=== PATIENT | male | born 1980 | race Caucasian/White ===

== ENCOUNTER 2022-02-19 13:01 | Outpatient (CLI) | payer OTHER, SELFPAY ==
--- NOTE | 2022-02-19 13:16 | XR_ITS ---
WS: [id number] EXAMINATION: XR lumbar spine 2-3V* [id number] L-SPINE : 3 views REASON FOR EXAM: LUMBAR DISC DZ/ARTHRITIS COMPARISON: None available. ORDER DATE: 02/19/2022 1:34 PM FINDINGS: The lumbar vertebral bodies and the disc spaces are normal in width. In the lumbar vertebra, there i s no evidence of compression deformities or spondylolisthesis. XR/XR lumbar spine 2-3V* [id number] IMPRESSION: UNREMARKABLE LUMBAR SPINE STUDY
--- NOTE | 2022-02-19 13:16 | USCV_ITS ---
Den Li Age: 41 Gender: M : 1980 Exam Date: 02/19/2022 13:33 Ordering Phys: Edgardo Garvin Technologist: Exam Location: [facility] [place] Indication: abnormal ekg BP: 119 / 70 HR: 79 Rhythm: Sinus Technical Quality: Suboptimal MEASUREMENTS (Male / Female) Normal Values 2D ECHO LV Diastolic Diameter PLAX 4.3 cm 4.2 - 5.9 / 3.9 - 5.3 cm LV Systolic Diameter PLAX 2.9 cm IVS Diastolic Thickness 1.3 cm 0.6 - 1.0 / 0.6 - 0.9 cm IVS Systolic Thickness 1.3 cm LVPW Diastolic Thickness 1.4 cm 0.6 - 1.0 / 0.6 - 0.9 cm LVPW Systolic Thickness 0.0 cm LVOT Diameter 2.0 cm LV Ejection Fraction 2D Teich 61.0 % LV Ejection Fraction MOD 2C 55.5 % LV Ejection Fraction 2C AL 56.1 % LA Diameter 3.4 cm Aorta at Sinotubular Diameter 3.1 cm M-MODE Aortic Annulus Diameter 4.0 cm LA Ao Ratio MM 0.9 MV E Point Septal Separation 0.9 cm DOPPLER AV Peak Velocity 106.0 cm/s LVOT Peak Velocity 111.0 cm/s AV Area Cont Eq vti 3.6 cm squared AV Area Cont Eq pk 3.3 cm squared MV Area PHT 5.0 cm squared Mitral E to A Ratio 1.0 MV E' Velocity 41.0 cm/s Mitral E to MV E' Ratio 4.4 Mitral E to LV E' Lateral Ratio 4.1 Mitral E to LV E' Septal Ratio 4.7 TR Peak Velocity 148.0 cm/s TR Peak Gradient 8.8 mmHg TV Peak E Velocity 87.0 cm/s Right Atrial Pressure 3.0 mmHg Pulmonary Artery Systolic Pressu 11.8 mmHg RV Acceleration Time 0.2 s FINDINGS Left Ventricle Normal left ventricular size, systolic function and wall thickness, with no regional wall motion abnormalities. Normal left ventricular wall thickness. Normal diastolic filling pattern. Right Ventricle The right ventricle is normal in size and function. Normal right ventricular systolic pressure. Right Atrium The right atrium is normal in size. Left Atrium The left atrium is normal in size. Mitral Valve Structurally normal mitral valve without significant stenosis or prolapse. There is no mitral regurgitation. Aortic Valve Structurally normal aortic valve without significant sclerosis or stenosis. There is no aortic regurgitation. Tricuspid Valve Structurally normal tricuspid valve without significant stenosis or regurgitation. Pulmonary artery systolic pressure is normal. Pulmonic Valve Structurally normal pulmonic valve without significant stenosis. There is no pulmonic regurgitation. Pericardium Normal pericardium without effusion. Aorta Normal ascending aorta dimension. IVC The inferior vena cava appears normal. CONCLUSIONS Normal transthoracic echocardiogram. There are no prior echocardiogram studies to compare. Dr. Puneet Moseley MD (Electronically Signed) Final Date: 19 February 2022 16:02 S
--- NOTE | 2022-02-19 13:16 | XR_ITS ---
WS: [id number] EXAMINATION: XR knee RT 3V* [id number] REASON FOR EXAM: ARTHRITIS chronic pain COMPARISON: None available. ORDER DATE: 02/19/2022 1:34 PM FINDINGS: There is no sign of any acute osseous or articular abnormality. There are no specific soft tissue abn ormalities. XR/XR knee RT 3V* [id number] IMPRESSION: No acute osseous or articular change
--- NOTE | 2022-02-19 13:16 | XR_ITS ---
WS: [id number] EXAMINATION: XR foot RT 2V [id number] REASON FOR EXAM: ARTHRITIS chronic pain COMPARISON: None available. ORDER DATE: 02/19/2022 1:34 PM TECHNIQUE: 2 views of the right foot were obtained. X-RAY FINDINGS: There are no fractures or dislocations. No focal abnormal soft tissue swelling. Joint spaces are pres erved. XR/XR foot RT 2V [id number] IMPRESSION: No fractures or dislocations of the right foot.
--- NOTE | 2022-02-19 13:16 | XR_ITS ---
WS: [id number] EXAMINATION: XR cervical spine 3V* [id number] Cervical spine 3 views REASON FOR EXAM: LUMBAR DISC DZ/ARTHRITIS COMPARISON: None available. FINDINGS: There is no sign of acute fracture or subluxation. Vertebral body heights and intervertebral disc sp aces are maintained. The cervical bony alignment and osseous densities appear normal. There is no p revertebral soft tissue change. XR/XR cervical spine 3V* [id number] IMPRESSION: No acute osseous abnormality.
--- NOTE | 2022-02-19 13:16 | XR_ITS ---
WS: [email or web address] EXAMINATION: XR ankle RT 2V [id number] REASON FOR EXAM: ARTHRITIS COMPARISON: None available. ORDER DATE: 02/19/2022 1:34 PM TECHNIQUE: 2 views of the right ankle were obtained. X-RAY FINDINGS: There is normal appearance of the ankle mortise. The osseous structures are unremarkable. There is no evidence of articular abnormality. Os trigonum noted. XR/XR ankle RT 2V [id number] IMPRESSION: No fractures or dislocations of the right ankle.
--- NOTE | 2022-02-19 14:41 | ECG_ITS ---
[facility] Test Date: 2022-02-19 Pat Name: Den Li Department: Room: Gender: Male Home Health Provider: : 1980 Requested By: Edgardo Garvin Order Number: [id number] Carlin MD: Carlita Newton M.D. Measurements Intervals [place] Rate: 82 P: 33 LA: 167 QRS: 24 QRSD: 96 T: 34 QT: 338 QTc: 397 Interpretive Statements SINUS RHYTHM WITH OCCASIONAL VENTRICULAR PREMATURE COMPLEXES POSSIBLE INFERIOR MYOCARDIAL INFARCTION , PROBABLY OLD [30 ms Q WAVE IN II/aVF] No previous ECG available for comparison Electronically Signed On 02-19-2022 18:52:19 MECHANICAL MAINTENANCE SUPERVISOR by Carlita Newton M.D. [email or web address]
== END 2022-02-19 13:02 | disposition home or self-care (01) ==
PROVIDERS: Visit Provider Chiropractor
DX: I25.10 Atherosclerotic heart disease of native coronary artery without angina pectoris (principal); M51.86 Other intervertebral disc disorders, lumbar region; M13.80 Other specified arthritis, unspecified site; R94.31 Abnormal electrocardiogram [ECG] [EKG]; I49.3 Ventricular premature depolarization
CPT/HCPCS: 72040; 72100; 73562; 73600; 73620; 93005; 93306